=== PATIENT | female | born 1990 | race Caucasian/White ===

== ENCOUNTER 2019-03-11 10:13 | Day surgery (SDC) | payer BC ==
[2019-03-10 14:19] VITALS: BMI 25.0
[2019-03-11] MEDS ORDERED: Ondansetron PF 4 MG/2 ML Vial ONE (11:02)
[2019-03-11] MEDS ORDERED: PROPOFOL 200 MG/20 ML VIAL ONE (11:02)
[2019-03-11] MEDS ORDERED: Doxycycline Hyclate 200 MG in Sodium Chloride 0.9% 250 ML 250 ML IVPB SCH (11:15)
[2019-03-11 12:15] LABS: Mean Corpuscular HGB CONC 34.1 g/dL (32.0-36.0); Mean Corpuscular Hemoglobin 31.7 pg (27.0-31.0); Mean Corpuscular Volume 93.2 fL (78.0-98.0); Mean Platelet Volume 7.1 fL (7.4-10.4); Platelet Count 351 thou/uL (130-400); RBC Distribution Width 11.2 % (11.5-14.5); Red Blood Cell (RBC) Count 4.41 mill/uL (4.20-5.40); White Blood Cell (WBC) Count 11.9 thou/uL (4.8-10.8)
[2019-03-11] MEDS ORDERED: Midazolam HCl 2 mg/2 ml Vial ONE ×2 (12:20→12:45)
[2019-03-11] MEDS ORDERED: Fentanyl 100 MCG/2 ML VIAL ONE (12:45)
[2019-03-11] MEDS ORDERED: Propofol 500 MG/50 ML VIAL ONE (12:46)
[2019-03-11] MEDS ORDERED: Oxytocin 10 UNITS/ML VIAL ONE (12:47)
--- NOTE | 2019-03-12 00:26 | OP ---
DATE OF PROCEDURE: 03/11/2019 PROCEDURE: Suction dilation and curettage. PRIMARY SURGEON: Michelle Webb MD BUSINESS PERFORMANCE SPECIALIST SURGEON: Mally Ennis MD, PGY-3. ANESTHESIA: Total intravenous anesthesia. PREOPERATIVE DIAGNOSIS: Missed . POSTOPERATIVE DIAGNOSIS: Missed , status post suction D and C. OPERATIVE FINDINGS: Moderate endometrial tissue from curettage. ESTIMATED BLOOD LOSS: 50 mL. COMPLICATIONS: None. PREOPERATIVE ANTIBIOTICS: Doxycycline 200 mg IV. INDICATIONS: Ms. Brumfield is a 28-year-old, G1, now P0-0-1-0, who presented to outpatient clinic for and was found to have an empty gestational sac on ultrasound. Two rounds of Cytotec treatment were attempted without successful passage of products, after which she elected to undergo suction D and C. All risks, potential complications, alternatives, and benefits were discussed prior to procedure and consents were signed. DESCRIPTION OF PROCEDURE: Under TIVA, the patient was placed in a dorsal lithotomy position with legs in candy-cane stirrups. The patient was prepped and draped in usual sterile fashion. In and out catheterization was performed. A Graves speculum was placed in the vagina and the anterior lip of the cervix was grasped with a single-tooth tenaculum. A series of Hegar dilators were inserted sequentially into the cervical os up to a size of 8 mm. A 7 mm curette was the smallest available and used to perform curettage. The curette was gently introduced until the fundus was encountered. In a sequential order, being sure to cover all regions of the uterine cavity, the curette was passed and removed in a slow circular motion. 4 passes were performed. Following this, a sharp curette was used to separate any additional tissue from the intrauterine cavity until a gritty sensation was noted throughout. The suction curette was passed again to remove any remaining tissue. At this time, few fragments were returned and ultimately only scant blood was returned. The tissue samples were collected and sent to Pathology. The tenaculum was removed and the cervix was examined for hemostasis, which was adequate. The speculum was removed. The patient tolerated the procedure well and was brought to the recovery room in stable condition. All counts were correct. Blood loss was minimal and there were no complications. Job ID: [id number] [facility]
== END 2019-03-11 14:50 | disposition home or self-care (01) ==
LOC: SDC 10:13
PROVIDERS: ATTEND Family Medicine
PROC: 10D17ZZ Extraction of Products of Conception, Retained, Via Natural or Artificial Opening (ICD-10-PCS; principal; 2019-03-11)
DX: O02.1 Missed abortion (principal); B00.9 Herpesviral infection, unspecified; Z79.899 Other long term (current) drug therapy
CPT/HCPCS: 36415; 85027; 86850; 86900; 86901; 88305; J2250; J2405; J2590; J2704; J3010; J7050

== ENCOUNTER 2020-02-23 11:40 | Day surgery (SDC) | payer BC ==
[2020-02-23] MEDS ORDERED: hydrALAZINE 20 MG/ML VIAL SLOW IVP PRN (11:45)
[2020-02-23 12:22] VITALS: BMI 34.2
[2020-02-23 12:35] LABS: #Basophils 0.1 thou/uL (0.0-0.2); #Eosinphils 0.1 thou/uL (0.0-0.7); #Lymphocytes 2.5 thou/uL (1.20-3.40); #Neutrophils 8.1 thou/uL (1.40-6.50); %Basophils 0.8 % (0.0-1.0); %Eosinophils 0.8 % (0.0-10.0); %Lymphocytes 21.2 % (21.0-51.0); %Monocytes 8.5 % (0.0-10.0); %Neutrophils 68.8 % (42.0-75.0); Hemoglobin 11.9 g/dL (12.0-16.0); Mean Corpuscular HGB CONC 33.1 g/dL (32.0-36.0); Mean Corpuscular Hemoglobin 31.8 pg (27.0-31.0); Mean Platelet Volume 9.6 fL (7.4-10.4); Platelet Count 228 thou/uL (130-400); Red Blood Cell (RBC) Count 3.74 mill/uL (4.20-5.40); White Blood Cell (WBC) Count 11.7 thou/uL (4.8-10.8)
[2020-02-23 12:54] LABS: ALT (SGPT) 21 U/L (8-55); AST (SGOT) 20 U/L (5-34); Albumin 3.6 g/dL (3.5-5.0); Alkaline Phosphatase 126 U/L (40-110); Anion Gap 15 mmol/L (10-20); BUN (Urea Nitrogen) 11 mg/dL (7.0-18.7); Bilirubin, Total 0.2 mg/dL (0.2-1.2); Calc. Creatinine Clearance 193 mL/min (70-130); Calcium 9.5 mg/dL (7.8-10.44); Carbon Dioxide 21 mmol/L (22-29); Chloride 106 mmol/L (98-107); Estimated GFR-MDRD Greater than 90; Globulin 3.1 g/dL (2.4-3.5); Glucose 76 mg/dL (70-105); Potassium 4.5 mmol/L (3.5-5.1); Protein, Total 6.7 g/dL (6.0-8.3); Sodium 137 mmol/L (136-145)
[2020-02-23 14:35] LABS: Creatinine, Urine 88.91 mg/dL (47-110)
== END 2020-02-23 15:15 | disposition home or self-care (01) ==
LOC: L&D/OP 11:40
PROVIDERS: ATTEND Student in an Organized Health Care Education/Training Program
DX: O99.89 Other specified diseases and conditions complicating pregnancy, childbirth and the puerperium (principal); R03.0 Elevated blood-pressure reading, without diagnosis of hypertension; Z3A.00 Weeks of gestation of pregnancy not specified
CPT/HCPCS: 36415; 80053; 82570; 84156; 85025; 99283

== ENCOUNTER 2020-03-05 01:17 | Outpatient (CLI) | payer BC, OTHER ==
[2020-03-05 17:39] LABS: SARS-CoV-2 MS2 Positive; SARS-CoV-2 N Gene Negative; SARS-CoV-2 S Gene Negative; SARS-CoV-2 orf1ab Negative
== END 2020-03-05 01:18 | disposition home or self-care (01) ==
LOC: ERS 01:17
PROVIDERS: ATTEND Student in an Organized Health Care Education/Training Program
DX: Z20.828 Contact with and (suspected) exposure to other viral communicable diseases (principal)
CPT/HCPCS: 87635; U0003